=== PATIENT | male | born 1965 | race Caucasian/White ===

== ENCOUNTER 2021-12-15 17:24 | Emergency (ER) | payer OTHER ==
[2021-12-15] MEDS ORDERED: Ibuprofen 800 MG TAB ONE (18:40)
[2021-12-15] MEDS ORDERED: HYDROcodone/Acetaminophen 10/325 mg Tablet ONE (18:40)
== END 2021-12-15 18:54 | disposition home or self-care (01) ==
LOC: MADERS 17:24
DX: S92.022A Displaced fracture of anterior process of left calcaneus, initial encounter for closed fracture (principal); W17.89XA Other fall from one level to another, initial encounter
CPT/HCPCS: 29515

== ENCOUNTER 2023-02-01 16:01 | Emergency (ER) | payer OTHER | END 2023-02-01 16:58 | LOC: MADERS 16:01 | DX: S82.52XA Displaced fracture of medial malleolus of left tibia, initial encounter for closed fracture (principal); S90.02XA Contusion of left ankle, initial encounter; W20.8XXA Other cause of strike by thrown, projected or falling object, initial encounter ==